=== PATIENT | female | born 1980 | race Caucasian/White ===

== ENCOUNTER 2024-10-27 13:17 | Emergency (ER) | payer BC ==
[~2024-10-27] VITALS: Ht 170.2 cm; Wt 120.3 kg
[~2024-10-27 13:17] MED LIST: ADDERALL 10 MG10 MG PO; ADDERALL 5 MG TA5 MG PO; LEVOTHYROXINE88 MC1 PO; OMEPRAZOLE20 MG PO; SERTRALINE HCL50 MG PO
[2024-10-27] MEDS ORDERED: JULEBER 28 DAY1 EACH PO (13:51)
[2024-10-27] MEDS ORDERED: ONDANSETRON 4 MG TAB ODT SL ONE (14:45)
[2024-10-27] MEDS ORDERED: TETRACAINE HCL 0.5% 4 ML BTL OU SCH (14:45)
[2024-10-27] MEDS ORDERED: diphenhydrAMINE HCL 50 MG/ML VIAL IV ONE (15:00)
[2024-10-27] MEDS ORDERED: SODIUM CHLORIDE 0.9% 1,000 ML IV PRN (15:00)
[2024-10-27] MEDS ORDERED: METOCLOPRAMIDE HCL 10 MG/2 ML SDV IV ONE (15:00)
[2024-10-27] MEDS ORDERED: KETOROLAC TROMETHAMINE 15 MG/ML VIAL IV ONE (15:00)
[2024-10-27 15:16] LABS: BASOPHILS 0.5 % (0.1-1.2); HEMATOCRIT 43.4 % (34.1-44.9); HEMOGLOBIN 14.6 g/dL (11.2-15.7); LYMPHOCYTES 16.6 % (19.3-51.7); MCH 28.2 PG (25.6-32.2); MCHC 33.6 g/dL (32.2-35.5); MCV 83.8 fL (79.4-94.8); MONOCYTES 6.6 % (4.7-12.5); NEUTROPHILS 73.9 % (34.0-71.1); PLATELET COUNT 181 K/uL (182-369); RBC 5.18 M/uL (3.93-5.22)
[2024-10-27 15:32] LABS: ALBUMIN 3.9 g/dL (3.4-5.0); ALBUMIN/GLOBULIN RATIO 0.89 (1.1-2.4); ANION GAP 14.7 (7-21); BILIRUBIN, TOTAL 0.3 mg/dL (0.2-1.0); BUN/CREATININE RATIO 12.08 (6.0-28.6); CALCIUM 8.7 mg/dL (8.5-10.1); CREATININE, SERUM 0.91 mg/dL (0.55-1.02); POTASSIUM 3.7 mmol/L (3.5-5.1); PROTEIN, TOTAL 8.3 g/dL (6.4-8.2)
[2024-10-27] MEDS ORDERED: OPTH OU ONE (19:15)
[2024-10-27] MEDS ORDERED: PILOCARPINE HCL 2% OU ONE (19:15)
[2024-10-27] MEDS ORDERED: acetaZOLAMIDE sodium 500 MG/5 ML VIAL IV ONE ×2 (19:15→20:45)
[2024-10-27] MEDS ORDERED: LORazepam 2 MG/ML VIAL IV ONE ×2 (19:45→20:45)
[2024-10-27 21:10] VITALS: BP 153/96
== END 2024-10-27 21:10 | disposition short-term general hospital (02) ==
LOC: ED 13:17
PROVIDERS: Emergency Medicine
DX: H40.213 Acute angle-closure glaucoma, bilateral (principal); E03.9 Hypothyroidism, unspecified; Z79.899 Other long term (current) drug therapy; Z91.018 Allergy to other foods
CPT/HCPCS: 36415; 70450; 80053; 84703; 85025; 96361; 96374; 96375; 96376; 99285-25; A9270; J1120; J1200; J1885; J2060; J2765; J7030